=== PATIENT | male | born 1960 ===

== ENCOUNTER 2017-10-21 14:31 | Emergency (ER) | payer BC ==
[~2017-10-21] VITALS: Ht 182.9 cm; Wt 85.7 kg
[2017-10-21] MEDS ORDERED: DILTIAZEM HCL 25 MG IV IV ONE (14:45)
[2017-10-21] MEDS ORDERED: IV NORMAL SALINE 1000 ML BAG IV ONE (14:45)
--- NOTE | 2017-10-21 14:46 | NUR ---
PT IS IN ROOM #2A. DR NAYLOR EVALUATED THE PT.
[2017-10-21] MEDS ORDERED: ASPI-605 PO (14:49)
[2017-10-21] MEDS ORDERED: METOPROLOL (14:49)
[2017-10-21] MEDS ORDERED: DILTIAZEM HCL 25 MG IV ONE (15:00)
[2017-10-21 15:05] LABS: BASOPHILS % (AUTO) 0.6 % (0.0-2.0); EOSINOPHILS # (AUTO) 0.2 K/uL (0.0-0.7); EOSINOPHILS % (AUTO) 2.4 % (0.0-7.0); HEMATOCRIT 44.1 % (36.7-47.1); LYMPHOCYTES # (AUTO) 1.4 K/uL (20.0-40.0); LYMPHOCYTES % (AUTO) 17.1 % (20.5-51.5); MEAN CORPUSCULAR HEMOGLOBIN 28.8 uug (23.8-33.4); MEAN CORPUSCULAR HGB CONC 34 g/dL (32.5-36.3); MEAN CORPUSCULAR VOLUME 84.3 fL (73.0-96.2); MONOCYTES # (AUTO) 0.5 K/uL (2.0-10.0); MONOCYTES % (AUTO) 6.7 % (0.0-11.0); NEUTROPHILS # (AUTO) 5.9 K/uL (1.8-8.9); NEUTROPHILS % (AUTO) 73.2 % (38.5-71.5); PLATELET COUNT (AUTO) 183 K/uL (152-348); RED BLOOD CELL COUNT(AUTO) 5.23 MIL/uL (4.06-5.63)
[2017-10-21 15:10] LABS: POTASSIUM 3.5 mmol/L (3.5-5.1)
[2017-10-21 15:22] LABS: BILIRUBIN,DIRECT 0.2 mg/dL (0.0-0.2); BILIRUBIN,TOTAL 0.7 mg/dL (0.2-1.0); TOTAL PROTEIN, SERUM 7.6 g/dL (6.4-8.2)
--- NOTE | 2017-10-21 19:05 | NUR ---
PT WAS D/C TO HOME. D/C INSTRUCTIONS GIVEN TO THE PT BY DR NAYLOR.
[2017-10-21 19:06] VITALS: BP 132/77
== END 2017-10-21 19:07 | disposition home or self-care (01) ==
LOC: ER 14:31
DX: I48.0 Paroxysmal atrial fibrillation (principal); Z79.82 Long term (current) use of aspirin
CPT/HCPCS: 36415; 70030-TC; 71045; 84443; 85025; 85730; 93005; A4663; J3490; J7030